=== PATIENT | female | born 1990 | race Caucasian/White ===

== ENCOUNTER 2025-06-15 09:06 | Outpatient (CLI) | payer BC ==
[2025-06-15 10:20] LABS: Hematocrit 42.9 % (36.0-46.0); Hemoglobin 14.6 g/dL (12.2-16.2); Mean Corpuscular Hemoglobin 32.0 pg (28.0-32.0); Mean Corpuscular Volume 94.3 fL (80.0-100.0); Nucleated Red Blood Cells % 0.1 %
[2025-06-15 11:54] LABS: Iron 105.0 ug/dL (50-170)
[2025-06-15 11:57] LABS: Total Iron Binding Capacity 325.0 ug/dL (250-425)
[2025-06-15 11:58] LABS: Alanine Aminotransferase 16 U/L (7-40); Anion Gap 11 (5-15); BUN/Creatinine Ratio 8.4 (10.0-20.0); Calcium 9.6 mg/dL (8.7-10.4); Carbon Dioxide 25 mmol/L (20-31); Chloride 105 mmol/L (98-107); Glucose 90 mg/dL (74-106); Potassium 4.3 mmol/L (3.5-5.1); Sodium 141 mmol/L (136-145); Total Protein 7.7 g/dL (5.7-8.2)
[2025-06-15 11:59] LABS: Albumin 5.0 g/dL (3.2-4.8); Alkaline Phosphatase 29 U/L (46-116); Bilirubin, Total 0.7 mg/dL (0.2-1.0); Blood Urea Nitrogen 8 mg/dL (9-23)
[2025-06-15 12:00] LABS: Follicle Stimulating Hormone 5.79 IU/L (SEE BELOW)
[2025-06-15 12:02] LABS: Thyroid Stimulating Hormone 1.15 uIU/mL (0.55-4.78)
[2025-06-15 12:03] LABS: Triglycerides 100 mg/dL (< 150)
[2025-06-15 12:05] LABS: HDL Cholesterol 60 mg/dL (40-59)
[2025-06-15 12:06] LABS: Cholesterol 271 mg/dL (< 200)
[2025-06-15 12:15] LABS: Beta HCG, Quantitative 0.1 mIU/mL (1.5-4.2)
[2025-06-15 13:39] LABS: Hepatitis A Total Antibody Positive (Negative); Hepatitis B Surface Antigen Negative (Negative); Hepatitis C Antibody Negative (Negative)
== END 2025-06-15 17:00 | disposition home or self-care (01) ==
LOC: LAB 09:06
PROVIDERS: ATTEND Licensed Practical Nurse
DX: N93.9 Abnormal uterine and vaginal bleeding, unspecified (principal); E55.9 Vitamin D deficiency, unspecified; Z13.1 Encounter for screening for diabetes mellitus; Z00.01 Encounter for general adult medical examination with abnormal findings; Z13.29 Encounter for screening for other suspected endocrine disorder
CPT/HCPCS: 36415; 80053; 80061; 82043; 82306; 82626; 82670; 82728; 83001; 83002; 83036; 83525; 83540; 83550; 84146; 84270; 84403; 84436; 84443; 84702; 85025; 86704; 86706; 86708; 86803; 87340